=== PATIENT | male | born 1965 | race Caucasian/White ===

== ENCOUNTER 2018-07-14 05:21 | Emergency (ER) | payer MEDICAID ==
[~2018-07-14] VITALS: Ht 172.7 cm; Wt 83.2 kg
[2018-07-14 05:25] VITALS: BP 132/74; PULSE 86; RESP 20; Ht 172.7 cm; Wt 83.2 kg
--- NOTE | 2018-07-14 06:20 | ERD ---
ER Documentation Chief Complaint Chief Complaint cough, fever, body aches since thursday HPI 52-year-old male, previously healthy, presents the emergency department, complaining of 4 days with worsening of productive cough, subjective fever, chills and general malaise. The patient has been taking [id number] med ication without improvement of the symptoms. He denies chest pain, no palpitations. No history of asthma or COPD. The patient is requesting a prescription for antibiotics. ROS All systems reviewed and are negative except as per history of present illness. Medications Home Meds Active Scripts Albuterol Sulfate* (Albuterol Sulfate* Liq) 2 Mg/5 Ml Syrup, 10 MG PO TID for 4 Days, #120 ML Prov:TAMEKA AMAYA MD 07/14/18 Diphenhydramine Hcl* (Benadryl*) 50 Mg Cap, 50 MG PO QHS PRN for COUGH, #5 CAP Prov:TAMEKA AMAYA MD 07/14/18 Amoxicillin* (Amoxicillin*) 500 Mg Cap, 500 MG PO TID for 7 Days, CAP Prov:TAMEKA AMAYA MD 07/14/18 Allergies Allergies: Coded Allergies: No Known Drug Allergy (Verified Allergy, Unknown, 07/14/18) PMhx/Soc Medical and Surgical Hx: pt denies Medical Hx, pt denies Surgical Hx Hx Alcohol Use: No Hx Substance Use: No Hx Tobacco Use: No Smoking Status: Never smoker FmHx Family History: diabetes; No coronary disease Physical Exam Vitals Vital Signs Date Temp Pulse Resp B/P (MAP) Pulse Ox O2 O2 Flow FiO2 Time Delivery Rate 07/14/18 97.8 86 20 132/74 96 05:25 (93) Physical Exam Const: No acute distress Head: Atraumatic Eyes: Normal Conjunctiva ENT: Erythematous oropharynx , normal External Ears, Nose and Mouth. Neck: Full range of motion. No meningismus. Resp: Rhonchi to auscultation bilaterally Cardio: Regular rate and rhythm, no murmurs Abd: Soft, non tender, non distended. Normal bowel sounds Skin: No petechiae or rashes Back: No midline or flank tenderness Ext: No cyanosis, or edema Neur: Awake and alert Psych: Normal Mood and Affect Procedures/MDM Differential diagnosis include but not limited to: Respiratory infection bacterial/viral/fungal. Asthma, pneumonitis, allergies, GERD. Less likely foreign body aspiration, cardiac related, aspiration pneumonia, malignancy. Physical examination and clinical presentation consistent most likely with viral syndrome. Antibiotics not indicated at this time. The patient is requesting a prescription for antibiotics, a prescription will be given with instructions to continue symptomatic and conservative management for 3 days, trying to avoid use of unnecessary antibiotics due to the possible side effects and complications. if there is no improvement of the symptoms in 72 hours, okay to start antibiotics. During the ED course the patient remained stable, no new complaints. Clinical impression discussed with the patient who agrees with management. The patient is stable to be treated outpatient and will be discharged home. some side effects of prescribed medications (headache, rash, nausea, vomiting, diarrhea, drowsiness, hypertension, interactions with other medications) were reviewed. The patient was instructed to follow up with the primary care provider in the next 48h. If symptoms persist, worsen or new symptoms develop, then patient should return to the ED immediately. Disclaimer: Inadvertent spelling and grammatical errors are likely due to EHR/dictation software use and do not reflect on the overall quality of patient care. Also, please note that the electronic time recorded on this note does not necessarily reflect the actual time of the patient encounter. Departure Diagnosis: Primary Impression: Cough Condition: Stable Additional Instructions: Muchas sunday por [facility] para griffin servicio. Esperamos que en griffin visita a la donato de emergencia griffin problema medico haya sido solucionado y que se sienta mucho mejor. Para estar seguros que griffin mejoria sigue en proceso, le pedimos el favor de hacer gerhard hector de seguimiento medico con griffin doctor primario en los proximos 2-4 sanchez. Lleve con usted estos documentos y las medicinas recetadas. Si alecia sintomas empeoran, NO SE ESPERE, por favor regrese a odnato de emergencia INMEDIATAMENTE. En preeti que usted no tenga un mdico de atencin primaria: Llame al mdico o clnica comunitaria de referencia que aparece abajo moy las horas de consultorio para hacer gerhard hector para que le vean. CLINICAS: [facility] [phone] [facility] [phone] [facility] [phone] [facility] [phone] [place] [phone] [facility]. [phone] TAMEKA MEDEL MD Jul 14, 2018 06:20
[2018-07-14] MEDS ORDERED: ALBU2SYR3 PO (06:23)
[2018-07-14] MEDS ORDERED: AMOX500C2 PO (06:23)
[2018-07-14] MEDS ORDERED: BEN50 PO (06:23)
== END 2018-07-14 07:09 | disposition home or self-care (01) ==
LOC: FTE 05:21
DX: R05 Cough (principal)
CPT/HCPCS: 99283